=== PATIENT | female | born 1965 | race Caucasian/White ===

== ENCOUNTER 2018-04-26 12:16 | Emergency (ER) | payer OTHER ==
[~2018-04-26] VITALS: Ht 160 cm; Wt 63.4 kg
[2018-04-26 12:25] VITALS: TEMP 37; Ht 160 cm; Wt 63.4 kg
[2018-04-26 13:28] LABS: MEAN CORPUSCULAR HGB CONC 31.9 g/dl (32-36); MEAN PLATELET VOLUME 10.5 fL (7.4-10.4); PLATELET COUNT 433 K/uL (130-400)
[2018-04-26 13:49] LABS: BASO % 0.6 %; BASO ABS # 0.06 K/uL (0-0.2); EOS % 0.8 %; EOS ABS # 0.08 K/uL (0-0.5); HEMATOCRIT 37.9 % (37-47); HEMOGLOBIN 12.1 g/dL (12.0-16.0); IG# 0.03 K/uL (0.00-0.02); LYMPH % 30.8 %; LYMPH ABS # 2.91 K/uL (1.2-3.4); MEAN CORPUSCULAR HEMOGLOBIN 26.2 pg (25-34); MONO % 6.4 %; NEUT % 61.1 %; NEUT ABS # 5.76 K/uL (1.4-6.5); RED CELL DISTRIBUTION WIDTH CV 14.5 % (11.5-14.5); WHITE BLOOD COUNT 9.44 K/uL (4.8-10.8)
[2018-04-26 13:56] LABS: ALBUMIN 3.7 gm/dl (3.4-5.0); ALKALINE PHOSPHATASE 56 U/L (45-117); ALT/SGPT 14 U/L (12-78); AST/SGOT 6 U/L (15-37); BLOOD UREA NITROGEN 12 mg/dl (7-18); CALCIUM 8.6 mg/dl (8.5-10.1); CARBON DIOXIDE 19 mmol/L (21-32); CREATININE 0.74 mg/dl (0.60-1.20); GLUCOSE 69 mg/dl (70-99); POTASSIUM 4.3 mmol/L (3.5-5.1); SODIUM 140 mmol/L (136-145)
[2018-04-26] MEDS ORDERED: GLC/500 PO (14:15)
[2018-04-26] MEDS ORDERED: LEVO25TA5 PO (14:15)
[2018-04-26] MEDS ORDERED: TYLOTC500 PO (14:15)
[2018-04-26] MEDS ORDERED: ALPR1TAB3 PO (14:15)
[2018-04-26] MEDS ORDERED: PROM12.57 PO (14:16)
[2018-04-26] MEDS ORDERED: THIO5CAP2 PO (14:30)
[2018-04-26] MEDS ORDERED: ALBU18002 (14:30)
[2018-04-26] MEDS ORDERED: SM350 PO (14:30)
[2018-04-26] MEDS ORDERED: RIZA1TAB7 PO (14:30)
[2018-04-26] MEDS ORDERED: TAMS0.4C38 PO (14:30)
[2018-04-26] MEDS ORDERED: TOPI200T14 PO (14:30)
[2018-04-26] MEDS ORDERED: EPP3/2 IM (14:30)
[2018-04-26] MEDS ORDERED: LAMO100T PO (14:31)
--- NOTE | 2018-04-26 17:29 | EMERGENCY ROOM VISIT NOTE ---
History Report prepared by Lolis: Alesia Raymond Under the Supervision of: Dr. Maurice Knox M.D. First contact with patient: 12:30 Chief Complaint: MENTAL HEALTH EVALUATION Stated Complaint: SUIDICAL IDEATIONS History of Present Illness The patient is a 53 year old female who presents to the Emergency Room for a mental health evaluation. The patient states that over the past month she has been having increased suicidal ideations. She states that she has the plan to "slice" her wrists and has access to razors. She notes that her psychiatrist from [place], Edward Palmer, recommended her coming to the ED. The patient complains of difficulty concentrating, lack of sleep, loss of appetite, feeling angry about things, and loss of interest in things that used to give her pleasure. The patient denies trying to overdose, access to firearms, and trying to "slice" her wrists. Source of History: patient Onset: a month ago Position: head Quality: other (mental health) Timing: worsening Note: The patient complains of suicidal ideations, difficultly concentrating, lack of sleep, loss of appetite, feeling angry about things, and loss of interest in things that used to give her pleasure. The patient denies trying to overdose, access to firearms, and trying to "slice" her wrists. Review of Systems See HPI for pertinent positives and negatives. A total of ten systems were reviewed and were otherwise negative. Past Medical & Surgical Medical Problems: (1) History of depressed bipolar disorder Family History No pertinent family history Social History Smoking Status: Never Smoker Marital Status: single Housing Status: lives alone Current/Historical Medications Scheduled Acetaminophen (Tylenol), 500 MG PO DIRECTED Albuterol Sulfate (Proair Respiclick), DIRECTED Alprazolam (Xanax), 1 TAB PO BID Carisoprodol (Carisoprodol), 1 TAB PO TID Epinephrine (Epipen), 0.3 MG IM UD Lamotrigine (Lamictal), 100 MG PO DAILY Levothyroxine Sodium (Levothyroxine Sodium), 1 TAB PO DAILY Metformin Hcl (Glucophage), 1 TAB PO BID Tamsulosin Hcl (Flomax), 1 CAP PO DAILY Thiothixene (Navane), 2 TABS PO HS Scheduled PRN Promethazine (Phenergan ), 1 TAB PO BID PRN for Nausea Miscellaneous Medications Rizatriptan Benzoate (Rizatriptan Benzoate), 1 TAB PO Topiramate (Topamax), 1 TAB PO Allergies Coded Allergies: Cephalexin (Unverified Allergy, Unknown, RASH, 04/26/18) Flurbiprofen (Unverified Allergy, Unknown, ANTI FLAXIN, 04/26/18) Heparin (Unverified Allergy, Unknown, ANTI FLAXIN, 04/26/18) Sulfa Antibiotics (Unverified Allergy, Unknown, ANTI FLAXIN, 04/26/18) Physical Exam Vital Signs Date Time Temp Pulse Resp B/P (MAP) Pulse Ox O2 Delivery O2 Flow Rate FiO2 04/26/18 19:22 84 20 134/82 100 04/26/18 15:44 77 18 96/64 99 Room Air 04/26/18 14:01 76 14 91/70 97 Room Air 04/26/18 12:25 37.0 81 20 145/88 99 Room Air Physical Exam Physical Exam GENERAL: She is oriented to person, place, and time. She appears well- developed and well-nourished. She does not appear distressed. HENT: Exam performed. Head: Normocephalic and atraumatic. Right Ear: External ear normal. No mastoid tenderness. Left Ear: External ear normal. No mastoid tenderness. Mouth/Throat: The oropharynx is clear and moist. No trismus in the jaw. No dental abscesses or uvula swelling. No oropharyngeal exudate or tonsillar abscesses. EYES: Conjunctivae and EOM are normal. Pupils are equal, round, and reactive to light. Right eye exhibits no discharge. Left eye exhibits no discharge. No scleral icterus. NECK: Normal range of motion. Neck supple. No JVD present. No spinous process tenderness present. No carotid bruit present. No rigidity. No tracheal deviation and normal range of motion present. No Brudzinski's sign and no Kernig 's sign noted. CV: Normal rate, regular rhythm, normal heart sounds and intact distal pulses. There is no peripheral edema. Palpable radial pulses bue. PULM/CHEST: Effort normal and breath sounds normal. No respiratory distress. No stridor. She has no wheezes. She has no rales. Chest Wall: She exhibits no tenderness. ABD: The abdomen is soft. Bowel sounds are normal. She has no distension. No mass is present. There is no tenderness. There is no rebound, no guarding, no Henry's sign and no tenderness at McBurney's point. Rovsig negative MUSC/SKEL: Normal range of motion. There is no peripheral edema, tenderness or deformity. LYMPH: No cervical adenopathy. NEURO: She is alert and oriented to person, place, and time. She has normal strength. No cranial nerve deficit or sensory deficit. Coordination and gait normal. GCS eye subscore is 4. GCS verbal subscore is 5. GCS motor subscore is 6. Cerebellar tests wnl. SKIN: Skin is warm and dry. She is not diaphoretic. PSYCH: She has a depressed mood and bizarre affect. Behavior is normal. Positive suicidal ideations. Medical Decision & Procedures Laboratory Results 04/26/18 13:11 Red Blood Count 4.62, Mean Corpuscular Volume 82.0, Mean Corpuscular Hemoglobin 26.2, Mean Corpuscular Hemoglobin Concent 31.9, Mean Platelet Volume 10.5, Neutrophils (%) (Auto) 61.1, Lymphocytes (%) (Auto) 30.8, Monocytes (%) (Auto) 6.4, Eosinophils (%) (Auto) 0.8, Basophils (%) (Auto) 0.6, Neutrophils # (Auto) 5.76, Lymphocytes # (Auto) 2.91, Monocytes # (Auto) 0.60, Eosinophils # (Auto) 0.08, Basophils # (Auto) 0.06 04/26/18 13:11 Test 04/26/18 12:37 04/26/18 13:10 04/26/18 13:11 Urine Color YELLOW Urine Appearance CLEAR (CLEAR) Urine pH 5.0 (4.5-7.5) Urine Specific [place] 1.017 (1.000-1.030) Urine Protein NEG (NEG) Urine Glucose (UA) NEG (NEG) Urine Ketones NEG (NEG) Urine Occult Blood NEG (NEG) Urine Nitrite NEG (NEG) Urine Bilirubin NEG (NEG) Urine Urobilinogen NEG (NEG) Urine Leukocyte Esterase NEG (NEG) Urine Test NEG (NEG) Urine Opiates Screen POS (NEG) Urine Methadone, Qualitative NEG (NEG) Urine Barbiturates NEG (NEG) Urine Phencyclidine (PCP) Level NEG (NEG) Ur Amphetamine/Methamphetamine NEG (NEG) MDMA (Ecstasy) Screen NEG (NEG) Urine Benzodiazepines Screen POS (NEG) Urine Cocaine Metabolite NEG (NEG) Urine Marijuana (THC) POS (NEG) Bedside Glucose 72 mg/dl (70-90) White Blood Count 9.44 K/uL (4.8-10.8) Red Blood Count 4.62 M/uL (4.2-5.4) Hemoglobin 12.1 g/dL (12.0-16.0) Hematocrit 37.9 % (37-47) Mean Corpuscular Volume 82.0 fL (80-100) Mean Corpuscular Hemoglobin 26.2 pg (25-34) Mean Corpuscular Hemoglobin Concent 31.9 g/dl (32-36) Platelet Count 433 K/uL (130-400) Mean Platelet Volume 10.5 fL (7.4-10.4) Neutrophils (%) (Auto) 61.1 % Lymphocytes (%) (Auto) 30.8 % Monocytes (%) (Auto) 6.4 % Eosinophils (%) (Auto) 0.8 % Basophils (%) (Auto) 0.6 % Neutrophils # (Auto) 5.76 K/uL (1.4-6.5) Lymphocytes # (Auto) 2.91 K/uL (1.2-3.4) Monocytes # (Auto) 0.60 K/uL (0.11-0.59) Eosinophils # (Auto) 0.08 K/uL (0-0.5) Basophils # (Auto) 0.06 K/uL (0-0.2) RDW Standard Deviation 43.0 fL (36.4-46.3) RDW Coefficient of Variation 14.5 % (11.5-14.5) Immature Granulocyte % (Auto) 0.3 % Immature Granulocyte # (Auto) 0.03 K/uL (0.00-0.02) Anion Gap 10.0 mmol/L (3-11) Est Creatinine Clear Calc Drug Dose 78.8 ml/min Estimated GFR () 107.2 Estimated GFR (Non- 92.5 BUN/Creatinine Ratio 16.1 (10-20) Calcium Level 8.6 mg/dl (8.5-10.1) Total Bilirubin 0.2 mg/dl (0.2-1) Direct Bilirubin < 0.1 mg/dl (0-0.2) Aspartate Amino Transf (AST/SGOT) 6 U/L (15-37) Alanine Aminotransferase (ALT/SGPT) 14 U/L (12-78) Alkaline Phosphatase 56 U/L (45-117) Total Protein 7.0 gm/dl (6.4-8.2) Albumin 3.7 gm/dl (3.4-5.0) Thyroid Stimulating Hormone (TSH) 0.912 uIu/ml (0.300-4.500) Ethyl Alcohol mg/dL < 3.0 mg/dl (0-3) Laboratory results reviewed by me ED Course 1242: The patient was evaluated in room A8. A complete history and physical exam was performed. 1410: The patient was medically cleared at this time. Her POC glucose was slightly low, but she is awake, alert and oriented x4. She is currently tolerating PO. 1601: The patient was accepted to [facility]. I signed the 201 at this time. Medical Decision 1242: The patient was evaluated in room A8. A complete history and physical exam was performed. 1410: The patient was medically cleared at this time. Her POC glucose was slightly low, but she is awake, alert and oriented x4. She is currently tolerating PO. 1601: The patient was accepted to [facility]. I signed the 201 at this time. Medication Reconcilliation Current Medication List: was personally reviewed by me Blood Pressure Screening Patient's blood pressure: Elevated blood pressure Blood pressure disposition: Elevated BP felt to be situational Impression Primary Impression: Suicidal ideation Scribe Attestation The scribe's documentation has been prepared under my direction and personally reviewed by me in its entirety. I confirm that the note above accurately reflects all work, treatment, procedures, and medical decision making performed by me. The chart was completed utilizing [email or web address] Speech voice recognition software. Grammatical errors, random word insertions, pronoun errors, and incomplete sentences are an occasional consequence of this system due to software limitations, ambient noise, and hardware issues. Any formal questions or concerns about the content, text, or information contained within the body of this dictation should be directly addressed to the physician for clarification. Departure Information Dispostion Mental Health Acute Care Referrals (PCP) Patient Instructions My [facility]
[2018-04-26 19:22] VITALS: BP 134/82; PULSE 84; O2SAT 100
== END 2018-04-26 19:24 ==
LOC: C.EDB 12:16 → C.EDA 19:24
DX: R45.851 Suicidal ideations (principal); F31.9 Bipolar disorder, unspecified